=== PATIENT | male | born 1965 | race Two or more races ===

== ENCOUNTER 2017-08-12 15:42 | Emergency (ER) | payer OTHER, MEDICAID ==
[~2017-08-12] VITALS: Ht 170.2 cm; Wt 99.8 kg
--- NOTE | 2017-08-12 15:42 | NUR ---
[facility]RA FROM [facility] FOR AMS AFTER DIALYSIS THIS AM. PLACED ON MONITOR. AWAITING MD ORDER
[2017-08-12] MEDS ORDERED: IV NS 0.9% 250 ML IV ONE (16:01)
[2017-08-12] MEDS ORDERED: IOHEXOL-300 100 ML VIAL IV ONE (16:01)
[2017-08-12 16:14] LABS: BASOPHILS % (AUTO) 0.8 % (0.0-2.0); EOSINOPHILS # (AUTO) 0.2 /CMM (0.0-0.7); HEMATOCRIT 27 % (39-51); HEMOGLOBIN 9.4 g/dL (13.5-17.5); LYMPHOCYTES # (AUTO) 0.8 /CMM (0.8-4.8); LYMPHOCYTES % (AUTO) 14.7 % (20.0-44.0); MEAN CORPUSCULAR HEMOGLOBIN 31 PG (26.0-33.0); MEAN CORPUSCULAR HGB CONC 34 g/dl (31.0-36.0); MEAN CORPUSCULAR VOLUME 91 fL (80-96); MONOCYTES # (AUTO) 0.3 /CMM (0.1-1.30); MONOCYTES % (AUTO) 5.2 % (2.0-12.0); NEUTROPHILS % (AUTO) 76.3 % (43.0-81.0); PLATELET COUNT (AUTO) 67 /CMM (150-450); WHITE BLOOD COUNT (AUTO) 5.2 K/uL (4.3-11.0)
[2017-08-12 16:25] LABS: ABG BASE EXCESS 2.7 mmol/L; ABG OXYGEN SATURATION 99.3 % (92.0-98.5); ABG PCO2 38.1 mmHg (35.0-45.0); ABG PH 7.462 (7.350-7.450); ABG PO2 422.2 mmHg (75.0-100.0); AaDO2 252.7 mmHg; COHb 0.2 % (0.5-1.5); MetHb 0.5 % (0.0-1.5); O2Hb 98.6 % (94.0-97.0); PEEP,BG 5 cm H2O; SITE, ABG Right Brachial; VENT MODE, BG AC 16 550 100% +5; VT, ABG 550 mL
[2017-08-12 16:39] LABS: ALBUMIN 3.2 g/dL (3.4-5.0); BILIRUBIN,DIRECT 1.5 mg/dL (0.0-0.2); BILIRUBIN,TOTAL 3.5 mg/dL (0.2-1.0); CALCIUM, SERUM 8.8 mg/dL (8.5-10.1); CREATININE 3.7 mg/dL (0.6-1.3); INR 1.13 (0.87-1.13); POTASSIUM 5.1 mmol/L (3.5-5.1); TOTAL PROTEIN, SERUM 9.4 g/dL (6.4-8.2)
[2017-08-12 16:43] LABS: TROPONIN I 0.132 ng/mL (0.00-0.056)
[2017-08-12 16:45] LABS: BAND % (MANUAL) 18 % (0.0-5.0); EOSINOPHILS % (MANUAL) 2 % (0-4); LYMPHOCYTES % (MANUAL) 16 % (16-48); MONOCYTES % (MANUAL) 6 % (0-11.0); NEUTROPHILS % (MANUAL) 58 (42-76)
--- NOTE | 2017-08-12 17:03 | NUR ---
STRAIGHT CATH NO URINE OUTPUT DR BAIN AWARE
[2017-08-12 17:23] VITALS: BP 101/66
--- NOTE | 2017-08-12 17:26 | NUR ---
RT NOTE PT PLACED ON VENT PER MD ORDER. SETTINGS ENDORSED BY TRANSPORT RT AC 16 550 +5 40%. ALARMS SET PER PROTOCOL AND AUDIBLE. VENT PLUGGED IN TO RED OUTLET. AMBU BAG AT BED SIDE. NO DISTRESS NOTED. WILL CONTINUE TO MONITOR. Addendum: 08/12/17 at 1728 by ALYCIA TSAI RT Amended: Links added.
--- NOTE | 2017-08-12 18:25 | NUR ---
CALLED [facility] AND SPOKE WITH GIANNA. AWAITING CALL BACK FROM [facility]
[2017-08-12] MEDS ORDERED: MEROPENEM 500 MG in IV NS 0.9% 50 ML IV ONE (18:30)
[2017-08-12] MEDS ORDERED: VANCOMYCIN 1 GM in IV D5W 250 ML IV ONE (18:30)
--- NOTE | 2017-08-12 18:33 | NUR ---
CALLED PHARMACY FOR IV MEDS
--- NOTE | 2017-08-12 19:13 | NUR ---
GAVE REPORT TO SHWETHA ARELLANO FOR [facility]
--- NOTE | 2017-08-12 19:31 | NUR ---
[facility] CATH TAKEN OUT D/T NO URINE PRODUCTION X2-3 HOURS. MD BAIN AWARE
[2017-08-12 19:46] VITALS: BP 108/82
--- NOTE | 2017-08-12 20:57 | NUR ---
[facility] TRANSFER INFO GOING TO [facility] ACCEPTED BY DR. Matthews CALL FOR REPORT ETA: 21:45
--- NOTE | 2017-08-12 21:11 | NUR ---
REPORT GIVEN TO STEVE DOUGLASS
[2017-08-12 21:37] VITALS: BP 127/77
--- NOTE | 2017-08-12 23:15 | NUR ---
[facility] TRANSPORT WONT TRANSPORT D/T BP OF 90/66. RECHECKED AND BP IS 114/78. 1L NS TO BE GIVEN
[2017-08-12] MEDS ORDERED: IV NS 0.9% 1,000 ML BAG IV ONE (23:30)
--- NOTE | 2017-08-12 23:32 | NUR ---
[facility] ACCEPTED RESPONSIBILITY OF TRANSFERRING PATIENT KARIN TO [facility]
== END 2017-08-13 00:44 | disposition short-term general hospital (02) ==
LOC: ER 15:43
DX: G93.40 Encephalopathy, unspecified (principal); D64.9 Anemia, unspecified; J18.9 Pneumonia, unspecified organism; R79.89 Other specified abnormal findings of blood chemistry; R94.5 Abnormal results of liver function studies; I48.91 Unspecified atrial fibrillation; E03.9 Hypothyroidism, unspecified; J96.10 Chronic respiratory failure, unspecified whether with hypoxia or hypercapnia; E11.22 Type 2 diabetes mellitus with diabetic chronic kidney disease; N18.9 Chronic kidney disease, unspecified; Z99.2 Dependence on renal dialysis; Z99.11 Dependence on respirator [ventilator] status; Z88.6 Allergy status to analgesic agent
CPT/HCPCS: 31720; 36415; 36600; 51702; 70450; 71045; 74176; 80048; 80076; 82140; 83605; 84484; 85025; 85730; 87040 ×2; 93005 ×2; 96361; 96365; 96368; 99291; A4216; A4606; J2185; J3370; J7050; J7060; Q9967; 94002-TC; Z7610